=== PATIENT | female | born 1955 | race Asian ===

== ENCOUNTER → 2017-04-24 | Outpatient (CLI) | payer BC ==
[~2017-04-24] MED LIST: ASPIRIN PO; CHOL1TAB42; CYAN500T13 PO; MAGNESIUM; OPTIRAY 320 IV PRN; PRO BIOTIC PO
[2017-04-24 10:35] LABS: CALCIUM 9.1 mg/dl (8.5-10.1)
[2017-04-24 10:57] LABS: ALKALINE PHOSPHATASE 51 U/L (45-117); ALT/SGPT 68 U/L (12-78); AST/SGOT 37 U/L (15-37); BLOOD UREA NITROGEN 17 mg/dl (7-18); BUN/CREATININE RATIO 18.1 (10-20); CARBON DIOXIDE 27 mmol/L (21-32); CHLORIDE 102 mmol/L (98-107); CREATININE 0.94 mg/dl (0.60-1.20); GLUCOSE 194 mg/dl (70-99); POTASSIUM 3.8 mmol/L (3.5-5.1); SODIUM 139 mmol/L (136-145)
[2017-04-24 12:07] LABS: BASO % 0.2 %; BASO ABS # 0.02 K/uL (0-0.2); COMPLETE YES; IG% 0.4 %; LYMPH % 23.4 %; LYMPH ABS # 1.92 K/uL (1.2-3.4); MEAN CELL VOLUME 92.1 fL (80-100); MEAN CORPUSCULAR HEMOGLOBIN 29.9 pg (25-34); MEAN CORPUSCULAR HGB CONC 32.5 g/dl (32-36); MEAN PLATELET VOLUME 10.2 fL (7.4-10.4); MONO % 4.6 %; NEUT % 68.4 %; PLATELET COUNT 272 K/uL (130-400); RED BLOOD COUNT 4.78 M/uL (4.2-5.4); WHITE BLOOD COUNT 8.21 K/uL (4.8-10.8)
--- NOTE | 2017-04-24 12:10 | DIAGNOSTIC IMAGING REPORT ---
CHEST CT WITH CONTRAST CT DOSE: 289.17 mGycm HISTORY: THYMOMA TECHNIQUE: Multiaxial CT images of the chest were performed following the intravenous administration of contrast. COMPARISON: None. FINDINGS: No mediastinal masses. No mediastinal or hilar lymphadenopathy. Normal caliber thoracic aorta. The heart is normal in size. No pleural or pericardial effusions. The central pulmonary arteries are patent. Stable right upper lobe anterior consolidation/fibrotic change with associated traction bronchiectasis. This likely represents post radiation change. No pneumothorax. The central airways are patent. The left lung is clear. No suspicious lytic or blastic osseous lesions. Hepatic steatosis. Stable 4 mm subpleural nodular density along the right major fissure within the right lower lobe on image 28. This is likely benign. Stable 4 mm nodular density within the right middle lobe on image 29. Stable 3 mm subpleural nodule within the right middle lobe on image 35. These nodules are stable dating back to a 2015 study and are therefore considered to be benign. IMPRESSION: No significant change compared to the prior study. No evidence for recurrent mediastinal mass or metastatic disease. Electronically signed by: Ernesto Stevens M.D. 04/24/2017 12:09 PM Dictated Date/Time: 04/24/2017 11:37 AM
== END | disposition home or self-care (01) ==
LOC: C.CTS 09:57
PROVIDERS: ATTEND Internal Medicine Hematology & Oncology
DX: C37 Malignant neoplasm of thymus (principal)